=== PATIENT | female | born 1950 | race Caucasian/White ===

== ENCOUNTER 2022-02-17 16:41 | Outpatient (CLI) | payer MEDICARE, OTHER, SELFPAY ==
--- NOTE | ~2022-02-17 | MM_ITS ---
EXAMINATION: MM screening gomez BI w oscar HISTORY: Screening TECHNIQUE: Craniocaudal and mediolateral oblique 3-D tomosynthesis images were obtained and synthetic 2-D images were generated. CAD analysis was submitted and interpreted. COMPARISON: Comparison to multiple prior studies sequentially, with oldest reviewed study dated 05/29. BREAST PARENCHYMAL COMPOSITION: There are scattered areas of fibroglandular density. FINDINGS: There is no evidence of suspicious mass, calcification, or architectural distortion to sugg est malignancy in either breast. There has been no suspicious interval change. IMPRESSION: 1. No mammographic evidence of malignancy. 2. Recommend routine screening mammography in one year. BI-RADS Category 1: Negative Reviewed, dictated and finalized at location A.
== END 2022-02-17 16:42 | disposition home or self-care (01) ==
LOC: ANHIMG 16:45
PROVIDERS: PCP Family Medicine Sports Medicine; Visit Provider Family Medicine Sports Medicine
DX: Z12.31 Encounter for screening mammogram for malignant neoplasm of breast (principal)
CPT/HCPCS: 77063; 77067

== ENCOUNTER 2023-07-28 01:41 | Day surgery (SDC) | payer MEDICARE, OTHER, SELFPAY ==
[2023-07-20 13:12] VITALS: BMI 25.0
[2023-07-28 09:13] VITALS: BP 151/70; PULSE 52; RESP 16; TEMP 36.3; O2SAT 100
[2023-07-28] MEDS: LACTATED RINGERS 1,000 ML 150 ML IV CONT (09:21)
--- NOTE | 2023-07-28 09:33 | PM.HPGS ---
History of Present Illness History of Present Illness Consent: Risks, benefits, and alternatives have been discussed and questions answered. Patient agrees to proceed with procedure. Chief complaint: hx colon polyps Narrative: Bryanna Boyd is a 73 year old female Presents for screening colonoscopy. Patient's current weight appetite and bowel movements are normal. Patient denies abdominal pain. She has had no bleeding. Patient had previous colonoscopy in 2019 that revealed a polyp. Patient is also reported to have diverticulosis. Patient denies abdominal pain or bowel habits are normal. Patient presents today for colonoscopy. Review of Systems Review of Systems: Review of systems noncontributory. [facility] Social History Social History Smoking packs per day: 0.5 Smoking cigarettes per day: 10.0 Years smoked: 40 Smoking pack-years: 20.00 Smoking status: Current every day smoker Tobacco type: cigarettes Alcohol intake: current Drinks per week: 7 Alcohol use details: WINE Substance use: never Substance use type: does not use Living arrangements: with family Spiritual care concerns: No Meds Home Medications and Allergies Home Medications Medication Instructions Recorded Confirmed Type furosemide 20 mg tablet 20 mg PO DAILY 07/20/23 07/28/23 History gabapentin 300 mg capsule 300 mg PO HS 07/20/23 07/28/23 History hydrocodone 10 mg-acetaminophen 1 tablet PO TID 07/20/23 07/28/23 History 325 mg tablet methocarbamol 500 mg tablet 500 mg PO HS 07/20/23 07/28/23 History metoprolol tartrate 25 mg tablet 25 mg PO DAILY 07/20/23 07/28/23 History rosuvastatin 20 mg tablet 20 mg PO DAILY 07/20/23 07/28/23 History trazodone 50 mg tablet 50 mg PO HS 07/20/23 07/28/23 History Allergies Allergy/AdvReac Type Severity Reaction Status Date / Time No Known Allergies Allergy Verified 07/28/23 09:11 Vital Signs Vital Signs - 24 hr 07/28/23 09:13 Temperature 97.4 F L Pulse Rate 52 L Respiratory Rate 16 Blood Pressure 151/70 H Pulse Oximetry 100 Oxygen Delivery Room Air Exam Narrative: Physical exam reveals patient to be alert. Vital signs stable. HEENT exam is unremarkable. Patient is anicteric. Lungs are clear to auscultation and percussion. Heart is without murmur or extra sounds. Abdomen bowel sounds are present soft nontender with no organomegaly. Digital external rectal exam is normal. Assessment and Plan Assessment and plan (1) History of colon polyps: Code(s): Z86.010 - Personal history of colonic polyps Status: Acute Assessment and Plan: Patient was previously found to have colon polyps elsewhere. Plan for surveillance colonoscopy at this time and consider this a 5 year intervals in the future.
--- NOTE | 2023-07-28 09:51 | WPDANESEPPF ---
Anes - Initial Pre Proc Eval Procedure: Operation Date: 07/28/23 10:30 Proposed Procedures p Colonoscopy - Thierry Ye MD Date/Time: 07/28/23 09:51 Surgeon: Thierry Ye MD Pre Op Diagnosis: hx colon polyps Patient Data Age: 73 Gender: F Height: 1.63 m Weight: 65.8 kg Last Vital Signs Temp 36.3 C L 07/28/23 09:13 Pulse 52 L 07/28/23 09:13 Resp 16 07/28/23 09:13 BP 151/70 H 07/28/23 09:13 Pulse Ox 100 07/28/23 09:13 O2 Del Method Room Air 07/28/23 09:13 Allergies Allergy/AdvReac Type Severity Reaction Status Date / Time No Known Allergies Allergy Verified 07/28/23 09:11 Home Medications Medication Instructions Recorded Confirmed Type furosemide 20 mg tablet 20 mg PO DAILY 07/20/23 07/28/23 History gabapentin 300 mg capsule 300 mg PO HS 07/20/23 07/28/23 History hydrocodone 10 mg-acetaminophen 1 tablet PO TID 07/20/23 07/28/23 History 325 mg tablet methocarbamol 500 mg tablet 500 mg PO HS 07/20/23 07/28/23 History metoprolol tartrate 25 mg tablet 25 mg PO DAILY 07/20/23 07/28/23 History rosuvastatin 20 mg tablet 20 mg PO DAILY 07/20/23 07/28/23 History trazodone 50 mg tablet 50 mg PO HS 07/20/23 07/28/23 History Patient hx anesthesia problems: none Family hx anesthesia problems: none Results Review: All pre-operative results and documents have been reviewed as part of the pre-operative evaluation. [facility] Past Medical History Medical History HTN (hypertension) Hyperlipidemia Smoker Social History Social History Smoking packs per day: 0.5 Smoking cigarettes per day: 10.0 Years smoked: 40 Smoking pack-years: 20.00 Smoking status: Current every day smoker Tobacco type: cigarettes Alcohol intake: current Drinks per week: 7 Alcohol use details: WINE Substance use: never Substance use type: does not use Living arrangements: with family Spiritual care concerns: No Anes - Eval Final PreProcedure Day of Procedure 07/28/23 09:51 Patient weight: normal Heart: regular rate and rhythm Lungs: clear to auscultation Airway: Mallampati scale class II Neurological: alert and oriented Last oral intake: >/= 8 hours ASA classification: III Emergent: no Anesthetic plan: proceed Anesthesia type and monitoring: general GIVS and standard monitoring Results Review: All pre-operative results and documents have been reviewed as part of the pre-operative evaluation. Informed Consent: The patient's anesthetic plan and its attendant risks and benefits were discussed with the patient/family/POA. Questions were solicited and answers provided to the satisfaction of the patient/family/POA.
[2023-07-28 10:43] VITALS: BP 112/58; PULSE 50; RESP 15; O2SAT 98
[2023-07-28 10:53] VITALS: BP 132/68; PULSE 49; RESP 15; O2SAT 98
[2023-07-28 11:03] VITALS: BP 128/81; PULSE 48; RESP 20; O2SAT 98
--- NOTE | 2023-07-28 11:22 | SUR.OPER ---
Only two of the three Sigmoid Colon Polyps were collected and sent to lab. Dr. Ye made aware, no new orders.
== END 2023-07-28 11:12 | disposition home or self-care (01) ==
PROVIDERS: PCP Internal Medicine Gastroenterology; Visit Provider Internal Medicine Gastroenterology
PROC: 0DJD8ZZ Inspection of Lower Intestinal Tract, Via Natural or Artificial Opening Endoscopic (ICD-10-PCS; CPT 45378; principal; 2023-07-28 10:30)
DX: Z12.11 Encounter for screening for malignant neoplasm of colon (principal); K57.92 Diverticulitis of intestine, part unspecified, without perforation or abscess without bleeding; K64.8 Other hemorrhoids; K63.5 Polyp of colon; I10 Essential (primary) hypertension; E78.5 Hyperlipidemia, unspecified; F17.210 Nicotine dependence, cigarettes, uncomplicated; Z79.891 Long term (current) use of opiate analgesic
CPT/HCPCS: 45385; 88305; J2704; J7120

== ENCOUNTER 2024-08-15 10:06 | Outpatient (CLI) | payer MEDICARE, OTHER, SELFPAY ==
--- NOTE | ~2024-08-15 | MR_ITS ---
MRI of the lumbar spine Clinical History: Back pain Technique: Axial T2-weighted images, and sagittal T1-weighted, T2-weighted, and and T2 fat-sat images were acquired. Findings: There is no fracture of the lumbar spine. There is minimal grade 1 retrolisthesis of L3 ove r L4. No bone marrow signal abnormality seen. At L1-L2, there is no disc bulge or herniation. There is mild facet arthropathy. No central canal christiano nosis or neural foraminal narrowing. At L2-L3, there is advanced degenerative disc narrowing. There is mild disc bulge with mild facet art hropathy. No central canal stenosis. There is moderate bilateral neural foraminal narrowing, left wor se than right. At L3-L4, there is moderate degenerative disc narrowing. There is mild diffuse disc bulge and mild fa cet arthropathy. No central canal stenosis. There is moderate bilateral neural foraminal narrowing. At L4-L5, there is minimal disc bulge with moderate to advanced facet arthropathy. No central canal s tenosis. There is mild bilateral neural foraminal narrowing. At L5-S1, there is no disc bulge or herniation. There is moderate facet arthropathy. No central canal stenosis or neural foraminal narrowing. Paravertebral soft tissues are unremarkable. Impression: Moderate degenerative spondylosis, as above. Reviewed, dictated and finalized at location . Impression: Moderate degenerative spondylosis, as above.
== END 2024-08-15 10:07 | disposition home or self-care (01) ==
LOC: MICIMG 10:08
PROVIDERS: PCP Internal Medicine Gastroenterology; Visit Provider Nurse Practitioner Family
DX: M47.896 Other spondylosis, lumbar region (principal)
CPT/HCPCS: 72148

== ENCOUNTER 2025-10-30 09:12 | Emergency (ER) | payer MEDICARE, OTHER, SELFPAY ==
--- NOTE | ~2025-10-30 | CT_ITS ---
EXAM/PROCEDURE: CT cervical spine wo con HISTORY: trauma COMPARISON: None available. TECHNIQUE: Cervical spine CT FINDINGS: No fracture lucency or traumatic malalignment C1-C7. Moderate to severe degenerative changes throughout the mid and lower cervical spine including advanced posterior spondylosis, and 2.5 mm anterolisthesis C7 on T1. No gross prevertebral or paraspinal soft tissue swelling or hematoma seen. At least mild possibly severe multilevel spinal canal stenosis present from C4-5 through C6-7. IMPRESSION: 1. No fracture lucency C1-C7. 2. Severe degenerative changes with multilevel spinal canal stenosis possibly severe. Reviewed, dictated and finalized at location A. E SCHEDULER IMPRESSION: 1. No fracture lucency C1-C7. 2. Severe degenerative changes with multilevel spinal canal stenosis possibly s evere.
--- NOTE | ~2025-10-30 | CT_ITS ---
EXAMINATION: CT brain wo con DATE: 10/30/2025 09:49 INDICATION: Trauma TECHNIQUE: Computed tomography (CT) of the head was performed without intravenous contrast. The dose-length product was 605.33 mGy-cm. COMPARISON: None FINDINGS: No gross intracranial mass effect or hemorrhage. Chronic microvascular ischemic appearing white matter changes and mild diffuse volume loss. No large acute ischemic event. No depressed skull fracture. Minimal mucoperiosteal thickening in the maxillary sinuses. No large hematoma seen in the skull. IMPRESSION: 1. No gross intracranial mass effect or hemorrhage. Mild paranasal sinus disease. Reviewed, dictated and finalized at location A. ING ENGINEER IMPRESSION: 1. No gross intracranial mass effect or hemorrhage. Mild paranasal sinus diseas e.
--- NOTE | ~2025-10-30 | XR_ITS ---
EXAMINATION: XR elbow RT min 3V DATE: 10/30/2025 10:11 INDICATION: Injury TECHNIQUE: Right elbow x-rays were obtained. COMPARISON: None. FINDINGS: No displaced fracture dislocation or aggressive bone lesion. No large joint effusion or suspicious radiopaque foreign body. Degenerative changes about the right shoulder. IMPRESSION: 1. No displaced fracture lucency. Reviewed, dictated and finalized at location A. BOTOMIST SUPERVISOR/INSTRUCTOR
--- NOTE | ~2025-10-30 | XR_ITS ---
EXAMINATION: XR wrist RT min 3V DATE: 10/30/2025 10:12 INDICATION: Right wrist pain post trauma TECHNIQUE: Posteroanterior, ulnar deviation, oblique, and lateral views of the right wrist were obtained. COMPARISON: none FINDINGS: Bone alignment is normal. No fracture. Mild polyarticular osteoarthritis including at the triscaphe, first carpometacarpal and several of the visualized metacarpophalangeal and interphalangeal joints. Soft tissues are unremarkable. IMPRESSION: 1. 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 No acute osseous abnormality. Reviewed, dictated and finalized at location A. CIAN APPRENTICE IMPRESSION: 1. 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 No acute osseous abnorm ality.
--- NOTE | ~2025-10-30 | XR_ITS ---
EXAMINATION: XR shoulder RT min 2V DATE: 10/30/2025 10:12 INDICATION: Injury TECHNIQUE: Right shoulder were obtained. COMPARISON: None. IMPRESSION: 1. Impacted and mildly comminuted proximal humerus metaphyseal or surgical neck fracture; the glenohumeral articulation remains intact. 2. Diffuse osteopenic and degenerative changes throughout the bones. No pathologic lesion is seen. Reviewed, dictated and finalized at location A. ET STITCHER IMPRESSION: 1. Impacted and mildly comminuted proximal humerus metaphyseal or surgical neck fracture; the glenohumeral articulation remains intact. 2. Diffuse osteopenic and degenerative changes throughout the bones. No patholo gic lesion is seen.
[2025-10-30 09:26] VITALS: BP 142/82; PULSE 58; RESP 16; TEMP 36.7; O2SAT 100
--- NOTE | 2025-10-30 09:26 | ED.GENADULT ---
HPI - General Adult General Chief complaint: Fall Stated complaint: right shoulder pain after fall History of Present Illness HPI narrative: [age] female present to the emergency department for evaluation for right shoulder pain and head injury after having a ground level fall. Patient reports she had a wet floor was in her house and she was walking quickly and fell and landed on her right side. Patient arrived to the emergency department by EMS with a right arm sling. Patient's primary complaint is right shoulder pain. Related Data Home Medications ?Medication ?Instructions ?Recorded ?Confirmed ?Last Taken ?Type furosemide 20 mg tablet 20 mg PO DAILY 07/20/23 07/28/23 Unknown History gabapentin 300 mg capsule 300 mg PO HS 07/20/23 07/28/23 Unknown History hydrocodone 10 mg-acetaminophen 1 tablet PO TID 07/20/23 07/28/23 07/28/23 History 325 mg tablet methocarbamol 500 mg tablet 500 mg PO HS 07/20/23 07/28/23 Unknown History metoprolol tartrate 25 mg tablet 25 mg PO DAILY 07/20/23 07/28/23 Unknown History rosuvastatin 20 mg tablet 20 mg PO DAILY 07/20/23 07/28/23 Unknown History trazodone 50 mg tablet 50 mg PO HS 07/20/23 07/28/23 Unknown History Allergies Allergy/AdvReac Type Severity Reaction Status Date / Time No Known Allergies Allergy Verified 10/30/25 09:29 Review of Systems Review of Systems: All systems reviewed & are unremarkable except as noted in HPI and below PMFSH Past Medical History Medical History (Updated 10/30/25 @ 13:22 by Mg Shah MD) Smoker Hyperlipidemia HTN (hypertension) Social History Social History Smoking packs per day: 0.5 Smoking cigarettes per day: 10.0 Years smoked: 40 Smoking pack-years: 20.00 Smoking status: Current every day smoker Tobacco type: cigarettes Alcohol intake: current Drinks per week: 7 Alcohol use details: WINE Substance use: never Substance use type: does not use Living arrangements: with family Spiritual care concerns: No Exam Narrative: APPEARANCE: Uncomfortable appearing HEAD: normocephalic, atraumatic. EYES: PERRLA/EOMI, conjunctivae clear. NOSE: Normal no drainage EARS:TMS clear with good light reflex. THROAT: Pharynx clear, no exudate. NECK: Supple. No adenopathy, no masses. RESPIRATORY: Airway patent, respirations nonlabored. Clear to auscultation bilaterally, no rales, rhonchi, wheezing. CARDIOVASCULAR: Regular rate and rhythm without murmurs rubs or gallops. ABDOMINAL: Soft, nontender, nondistended, normal bowel sounds MUSCULOSKELETAL: Right shoulder pain, right elbow pain, right wrist tenderness. NEURO: Alert. Cranial nerves II through XII intact. Good gait. Good coordination SKIN: Warm, dry. Normal Color Course Vital Signs Vital signs: Vital Signs Temperature 98.1 F 10/30/25 09:26 Pulse Rate 58 L 10/30/25 09:26 Respiratory Rate 16 10/30/25 09:26 Blood Pressure 142/82 H 10/30/25 09:26 Pulse Oximetry 100 10/30/25 09:26 Oxygen Delivery Room Air 10/30/25 09:26 Temperature 98.1 F 10/30/25 09:26 Pulse Rate 58 L 10/30/25 09:26 Respiratory Rate 20 10/30/25 12:46 Blood Pressure 155/68 H 10/30/25 12:46 Pulse Oximetry 99 10/30/25 10:30 Oxygen Delivery Room Air 10/30/25 09:26 [facility] MDM Narrative Medical decision making narrative: [age] old female presented emergency department for evaluation for left shoulder pain. Patient does have a fracture of the left proximal humerus. X-ray right wrist and right elbow showed no acute fracture dislocations. Patient's CT head CT cervical spine showed no acute fracture dislocations. Patient and family updated on results of the workup. Patient is placed in a shoulder immobilizer. Patient was able to ambulate without significant discomfort. Patient will be provided outpatient follow-up with Orthopedics provided medications for pain control. Differential Diagnosis Differential Diagnosis: Subdural hematoma, subarachnoid hemorrhage, cervical spine fracture, shoulder fracture, shoulder dislocation, elbow fracture, wrist fracture Imaging Data Radiologist's impression: ITS Impressions Head CT 10/30/25 09:50 IMPRESSION: 1. No gross intracranial mass effect or hemorrhage. Mild paranasal sinus disease. Cervical Spine CT 10/30/25 09:51 IMPRESSION: 1. No fracture lucency C1-C7. 2. Severe degenerative changes with multilevel spinal canal stenosis possibly severe. Elbow X-Ray 12/17/25 10:15 IMPRESSION: 1. No displaced fracture lucency. Shoulder X-Ray 10/30/25 10:15 IMPRESSION: 1. Impacted and mildly comminuted proximal humerus metaphyseal or surgical neck fracture; the glenohumeral articulation remains intact. 2. Diffuse osteopenic and degenerative changes throughout the bones. No pathologic lesion is seen. Wrist X-Ray 10/30/25 10:17 IMPRESSION: 1. 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 No acute osseous abnormality. Discharge Plan Discharge Clinical Impression: Fracture, humerus closed Patient Disposition: Home Condition: Stable Instructions: Antibiotic Form, Scapular Fracture (ED) Additional Instructions: Ibuprofen for pain control. [place] as needed for additional pain control. Flexeril for muscle spasm. Shoulder immobilizer as directed. Have close follow-up with Orthopedics. If you have any worsening symptoms then please call or return to the emergency department. Patient Language: Citizen Of [place] Prescriptions: New cyclobenzaprine 10 mg tablet 10 mg PO BID PRN (Reason: muscle spasm) Qty: 14 0RF hydrocodone-acetaminophen 5-325 mg tablet 1 tablet PO Q12H PRN (Reason: pain) Qty: 14 0RF No Action methocarbamol 500 mg tablet 500 mg PO HS trazodone 50 mg tablet 50 mg PO HS hydrocodone-acetaminophen 10-325 mg tablet 1 tablet PO TID gabapentin 300 mg Capsule 300 mg PO HS furosemide 20 mg tablet 20 mg PO DAILY rosuvastatin 20 mg tablet 20 mg PO DAILY metoprolol tartrate 25 mg tablet 25 mg PO DAILY Follow-up/Referrals: Sam Loera MD [Physician, Orthopedics] Kai,Rae Sexton MD [Non-Staff]
[2025-10-30 09:35] VITALS: O2SAT 100
[2025-10-30 10:23] VITALS: O2SAT 98
[2025-10-30 10:30] VITALS: O2SAT 99
[2025-10-30] MEDS: HYDROmorphone HCL INJ (*CRX) 1 MG/ML SYR 0.5 MG IV PUSH (11:34)
--- OUTSIDE RECORDS SUMMARY | 2025-10-30 12:06 | XMS_ITS | Clinical Summary ---
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 Name Role Phone Natanael Lopez MD Primary Care Provider [phone] Allergies No known active allergies Medications metoprolol (LOPRESSOR) 25 mg tablet Take 25 mg by mouth daily Active furosemide (LASIX) 20 mg tablet Take 20 mg by mouth daily Active diphenoxylate-a tropine (LOMOTIL) 2.5-0.025 mg per tabletIndicatio ns:diarrhea Take 1 tablet by mouth as needed for diarrhea Active meloxicam (MOBIC) 7.5 mg tablet Take 7.5 mg by mouth 2 (two) times a day Active tiZANidine (ZANAFLEX) 2 mg tablet Take 2 mg by mouth every 8 (eight) hours as needed for muscle spasms Active HYDROcodone-beni taminophen (NORCO) 7.5-325 mg per tabletIndicatio ns:Pain Take 1 tablet by mouth 3 (three) times a day as needed for pain Active folic acid/multivit-m in/lutein (CENTRUM SILVER ORAL) Take by mouth daily Active calcium carbonate (OS-DAINE) 1,500 mg (600 mg of elemental calcium) tablet Take 1,500 mg of elemental calcium by mouth daily Active ascorbic acid (vitamin C) 1,000 mg tablet Take 1,000 mg by mouth daily Active vitamin E (AQUASOL E) 1,000 unit capsule Take 1,000 Units by mouth daily Active omega-3 fatty acids 1,000 mg capsule Take by mouth Active ginkgo biloba 40 mg tablet Take by mouth Act rodney glucosamine-cho ndroitin 500-400 mg tablet Take 1 tablet by mouth Active psyllium, aspartame, SF (METAMUCIL SF) 3.4 gram packet Take 1 packet by mouth daily Active potassium gluconate 595 mg (99 mg) tablet 595 mg Active TURMERIC ORAL Take by mouth Ac tive aspirin 81 mg enteric coated tablet Take 81 mg by mouth daily Active Active Problems Problem Noted Date Diagnosed Date Cervical stenosis of spinal canal 01/08/2020 Assessment & Plan (01/08/2020 3:44 PM PHYSIATRIST): Ms. Boyd has an MRI report that shows severe cervical stenosis at multiple levels worse at the C5-6 level. She has symptoms consistent with the sensory C6 radiculopathy on the right. She has some mild symptoms of myelopathy that a long-standing in not changed recently. She will send the actual MRI for my review. We discussed different options including medications, therapy, injections and surgery. If the stenosis is not too severe, then she may benefit from cervical injections. She smokes one [id number] and is aware that she would need to quit smoking prior to surgery before being a surgical candidate. She would need to continue without smoking for three months after surgery to optimize the chance of successful fusion. We will speak to her by phone with results of the MRI are reviewed. We will set up a follow-up appointment for four months time with flexion-extension cervical spine films at that time. Surgical History Surgery Date Site/Laterality Comments APPENDECTOMY TONSILLECTOMY Medical History Medical History Date Comments HTN (hypertension) Hyperlipidemia Mild depression History of bronchitis Family History Medical History Relation Name Comments Hypertension Father Melanoma Father Hypertension Mother Lymphoma Sister Relation Name Status Comments Father Mother Sister Social History Tobacco Use Types Packs/Day Years Used Date Smoking Tobacco: Every Day Cigarettes 1 35 Alcohol Use Standard Drinks/Week Comments Yes 0 (1 standard drink = 0.6 oz pur e alcohol) Moderate amount PHQ-2 Answer Date Recorded PHQ-2 Total Score (If total score is 3 or more points, staff should administer the PHQ-9) 0 01/08/2020 Comments Unknown Sex and Gender Information Value Date Recorded Sex Assigned at Not on file Legal Sex Female 1:16 PM PHYSIATRIST Gender Identity Not on file Sexual Orientation Not on file Last Filed Vital Signs Vital Sign Reading Time Taken Comments Blood Pressure - - Pulse - - Temperature - - Respiratory Rate 12 01/08/2020 1:44 PM PHYSIATRIST Oxygen Saturation - - Inhaled Oxygen Concentration - - Weight 68.2 kg (150 lb 6.4 oz) 01/08/2020 1:44 P M PHYSIATRIST Height 165.1 cm (5' 5) 01/08/2020 1:44 PM PHYSIATRIST Body Mass Index 25.03 01/08/2020 1:44 PM PHYSIATRIST Plan of Treatment Not on file Insurance MEDICARE [facility] MEDICARE [facility] Care Teams Railroad Baggage Porter Relationship Specialty Start Date End Date Natanael Lopez MD [address] [place] [address] PCP - General Family Medicine 01/02/20
[2025-10-30] MEDS: HYDROcodone/acetaminophen (*CRX) 5-325 MG TABLET 1 TAB PO (12:17)
[2025-10-30 12:46] VITALS: BP 155/68; RESP 20
== END 2025-10-30 13:45 | disposition home or self-care (01) ==
PROVIDERS: Emergency Provider Emergency Medicine; PCP Internal Medicine
DX: S49.001A Unspecified physeal fracture of upper end of humerus, right arm, initial encounter for closed fracture (principal); I10 Essential (primary) hypertension; E78.5 Hyperlipidemia, unspecified; F17.210 Nicotine dependence, cigarettes, uncomplicated; W01.0XXA Fall on same level from slipping, tripping and stumbling without subsequent striking against object, initial encounter; Y92.009 Unspecified place in unspecified non-institutional (private) residence as the place of occurrence of the external cause
CPT/HCPCS: 70450; 72125; 73030; 73080; 73110; 96374; 99284; A9270; J1171